=== PATIENT | female | born 1990 | race Caucasian/White ===

== ENCOUNTER 2016-02-27 21:35 | Emergency (ER) | payer OTHER ==
[~2016-02-27] VITALS: Ht 170.1 cm; Wt 53.1 kg
[~2016-02-27 21:35] MED LIST: AMOXICILLIN500 MG PO; AUGMENTIN 875 M1 TA1 PO; BACTRIM DS 8001 TA1 PO; CLARITIN10 MG PO; COLACE100 MG PO; DARVOCET N 1001 TAB PO; HYDROCORTISONE30 G3 PO; IRON325 M1 PO; KEFLEX500 MG PO; METHERGINE0.2 MG PO; MOTRIN800 MG PO; NKHM; PERCOCET 325 MG1 TA6 PO; PRENATAL1 TA1 PO; PRENATAL1 TA7 PO; ROBITUSSIN DM 105 ML PO; ULTRAM50 MG PO; VENTOLIN H0.09 MG/AC INH; ZITHROMAX Z PA250 MG PO
== END 2016-02-27 22:49 | disposition home or self-care (01) ==
LOC: ED 21:35
DX: H00.021 Hordeolum internum right upper eyelid (principal); F17.200 Nicotine dependence, unspecified, uncomplicated

== ENCOUNTER 2016-08-28 14:11 | Emergency (ER) | payer OTHER ==
[~2016-08-28] VITALS: Wt 55.8 kg
[2016-08-28] MEDS ORDERED: BACTRIM DS 8001 TA1 PO (14:31)
[2016-08-28] MEDS ORDERED: CEPHALEXIN500 M1 PO (14:31)
== END 2016-08-28 14:39 | disposition home or self-care (01) ==
LOC: ED 14:11
DX: L02.31 Cutaneous abscess of buttock (principal); F17.200 Nicotine dependence, unspecified, uncomplicated

== ENCOUNTER → 2016-08-30 | Outpatient (CLI) | payer OTHER ==
[~2016-08-30] MED LIST changes: +CEPHALEXIN500 M1 PO
== END | disposition home or self-care (01) ==
LOC: WOUNDCARE 02:20
DX: L02.31 Cutaneous abscess of buttock (principal); B95.62 Methicillin resistant Staphylococcus aureus infection as the cause of diseases classified elsewhere; F12.90 Cannabis use, unspecified, uncomplicated; F17.210 Nicotine dependence, cigarettes, uncomplicated; Z72.89 Other problems related to lifestyle

== ENCOUNTER → 2016-12-05 | Outpatient (CLI) | payer OTHER | END | disposition home or self-care (01) | LOC: US 11-29 14:00 | DX: Z34.81 Encounter for supervision of other normal pregnancy, first trimester (principal) ==

== ENCOUNTER → 2017-01-01 | Outpatient (CLI) | payer OTHER | END | disposition home or self-care (01) | LOC: US 12-24 07:30 | DX: N28.1 Cyst of kidney, acquired (principal) ==

== ENCOUNTER → 2017-02-13 | Outpatient (CLI) | payer OTHER | END | disposition home or self-care (01) | LOC: US 14:00 | DX: Z34.81 Encounter for supervision of other normal pregnancy, first trimester (principal); Z3A.19 19 weeks gestation of pregnancy ==

== ENCOUNTER 2020-01-25 11:47 | Emergency (ER) | payer MEDICAID ==
[~2020-01-25] VITALS: Wt 54.4 kg
[~2020-01-25 11:47] MED LIST changes: +CIPRO500 MG PO; +VIBRAMYCIN100 MG PO
[2020-01-25 13:07] LABS: BILIRUBIN Negative (Negative); BLOOD Negative (Negative); CLARITY Clear (Clear); COLOR Yellow (Yellow); GLUCOSE Negative (Negative); KETONE Negative (Negative); LEUKO ESTERASE 1+ (Negative); NITRITE Negative (Negative); PH 5.5 (4.5-8.0); SPECIFIC GRAVITY 1.015 (1.001-1.030); UROBILINOGEN 0.2 E.U./dl (0.0-1.0)
[2020-01-25 13:14] LABS: BACTERIA 1+
[2020-01-25] MEDS ORDERED: CEFUROXIME AXE500 MG PO (13:17)
== END 2020-01-25 13:16 | disposition home or self-care (01) ==
LOC: ED 11:47
PROVIDERS: Physician Assistant
DX: O23.41 Unspecified infection of urinary tract in pregnancy, first trimester (principal); Z3A.01 Less than 8 weeks gestation of pregnancy

== ENCOUNTER 2020-04-14 16:36 | Emergency (ER) | payer OTHER ==
[~2020-04-14] VITALS: Ht 170.1 cm; Wt 59.0 kg
[~2020-04-14 16:36] MED LIST changes: +CEFUROXIME AXE500 MG PO
[2020-04-14 17:39] LABS: BASO % 0.4 % (0.0-1.0); EOS # 0.1 10*3/uL (0.0-0.4); EOS % 1.3 % (1.0-4.0); LYMPH # 2.2 10*3/uL (1.3-4.4); LYMPH % 19.6 % (27.0-41.0); MEAN CORPUSCULAR HGB 28.7 pg (27.0-31.0); MEAN CORPUSCULAR HGB CONC 31.9 g/dl (33.0-37.0); MEAN PLATELET VOLUME 9.5 fl (9.6-12.3); MONO # 0.7 10*3/uL (0.1-1.0); MONO % 6.1 % (3.0-9.0); NEUT % 72.2 % (47.0-73.0); PLATELET COUNT AUTOMATED 232 10*3/uL (130-400); RED BLOOD COUNT 4.11 10*6/uL (4.10-5.10); RED CELL DISTRI WIDTH 14.6 % (0-14.5)
[2020-04-14 17:48] LABS: BILIRUBIN Negative (Negative); BLOOD Negative (Negative); CLARITY Clear (Clear); COLOR Yellow (Yellow); GLUCOSE Negative (Negative); KETONE Negative (Negative); LEUKO ESTERASE Negative (Negative); NITRITE Negative (Negative); SPECIFIC GRAVITY 1.015 (1.001-1.030); UROBILINOGEN 0.2 E.U./dl (0.0-1.0)
[2020-04-14 17:56] LABS: BACTERIA TRACE; RBC 0-2 rbc/hpf (0-2); WBC 0-2 wbc/hpf (0-5)
[2020-04-14 18:02] LABS: ALBUMIN 3.3 gm/dl (3.1-4.5); BUN 11 mg/dl (7-24); CHLORIDE 107 mmol/L (98-107); CREATININE 0.62 mg/dL (0.55-1.02); POTASSIUM 3.5 mmol/L (3.5-5.1); SGOT/AST 6 IU/L (3-35); SGPT/ALT 12 U/L (12-78); SODIUM 140 mmol/L (136-145)
[2020-04-14 18:03] LABS: ALKALINE PHOSPHATASE 53 U/L (45-117); TOTAL PROTEIN 7.2 gm/dL (6.4-8.2)
== END 2020-04-14 18:36 | disposition home or self-care (01) ==
LOC: ED 16:36
PROVIDERS: Physician Assistant
DX: O99.810 Abnormal glucose complicating pregnancy (principal); O99.332 Smoking (tobacco) complicating pregnancy, second trimester; E16.2 Hypoglycemia, unspecified; Z79.899 Other long term (current) drug therapy; Z3A.17 17 weeks gestation of pregnancy

== ENCOUNTER 2020-10-11 16:54 | Emergency (ER) | payer OTHER ==
[~2020-10-11] VITALS: Ht 170.1 cm; Wt 61.2 kg
[2020-10-11] MEDS ORDERED: AMOXICILLIN500 M3 PO (17:50)
== END 2020-10-11 17:54 | disposition home or self-care (01) ==
LOC: ED 16:54
DX: J02.0 Streptococcal pharyngitis (principal); K02.9 Dental caries, unspecified; Z91.040 Latex allergy status

== ENCOUNTER 2021-05-30 16:54 | Inpatient (IN) | payer OTHER ==
[~2021-05-30] VITALS: Ht 170.1 cm; Wt 50.5 kg
[~2021-05-30 16:54] MED LIST changes: +AMOXICILLIN500 M3 PO
[2021-05-30 17:03] VITALS: BP 135/80
[2021-05-30 17:21] LABS: HEMATOCRIT 37.8 % (37.0-47.0); MEAN CORPUSCULAR HGB 26.7 pg (27.0-31.0); MEAN CORPUSCULAR HGB CONC 32.5 g/dl (33.0-37.0); MEAN PLATELET VOLUME 10.1 fl (9.6-12.3); PLATELET COUNT AUTOMATED 275 10*3/uL (130-400); RED BLOOD COUNT 4.61 10*6/uL (4.10-5.10); RED CELL DISTRI WIDTH 15.9 % (0-14.5); WHITE BLOOD COUNT 27.7 10*3/uL (4.8-10.8)
[2021-05-30 17:25] LABS: MANUAL DIFF REFLEX YES
[2021-05-30 17:39] LABS: ALKALINE PHOSPHATASE 65 U/L (45-117); BUN 13 mg/dl (7-24); CHLORIDE 101 mmol/L (98-107); CREATININE 0.88 mg/dL (0.55-1.02); LIPASE 65 U/L (73-393); POTASSIUM 3.2 mmol/L (3.5-5.1); SGOT/AST 8 IU/L (3-35); SGPT/ALT 14 U/L (12-78); SODIUM 135 mmol/L (136-145); TOTAL PROTEIN 7.5 gm/dL (6.4-8.2)
[2021-05-30 17:45] LABS: TOTAL CELLS COUNTED 100 #CELLS
[2021-05-30 17:46] LABS: OVALOCYTES FEW; PLATELET SUFFICIENCY NORMAL (NORMAL)
[2021-05-30 17:47] LABS: MICROCYTOSIS SLIGHT
[2021-05-30 18:26] LABS: BILIRUBIN Negative (Negative); BLOOD 2+ (Negative); CLARITY Clear (Clear); COLOR Yellow (Yellow); GLUCOSE Negative (Negative); KETONE Trace (Negative); LEUKO ESTERASE 1+ (Negative); NITRITE Negative (Negative)
[2021-05-30 18:39] LABS: BACTERIA 1+; MUCOUS 1+; RBC 21-30 rbc/hpf (0-2); WBC 31-40 wbc/hpf (0-5)
[2021-05-30 19:00] VITALS: BP 140/78
[2021-05-30 22:02] VITALS: BP 117/73
[2021-05-30 22:15] VITALS: BP 127/79
[2021-05-31] VITALS: BP 138/83
[2021-05-31 06:13] LABS: HEMATOCRIT 35.5 % (37.0-47.0); MEAN CELL VOLUME 82.8 fl (81.0-99.0); MEAN CORPUSCULAR HGB 26.1 pg (27.0-31.0); MEAN CORPUSCULAR HGB CONC 31.5 g/dl (33.0-37.0); MEAN PLATELET VOLUME 10.5 fl (9.6-12.3); PLATELET COUNT AUTOMATED 239 10*3/uL (130-400); RED BLOOD COUNT 4.29 10*6/uL (4.10-5.10); RED CELL DISTRI WIDTH 16.1 % (0-14.5); WHITE BLOOD COUNT 26.7 10*3/uL (4.8-10.8)
[2021-05-31 06:21] LABS: ACT PARTIAL THROMBO TIME 34.8 SECONDS (20.0-32.1); INTERNATIONAL NORM RATIO 1.1 (2.0-3.5)
[2021-05-31 06:29] LABS: ALKALINE PHOSPHATASE 73 U/L (45-117); BUN 11 mg/dl (7-24); CHLORIDE 104 mmol/L (98-107); CHOLESTEROL 141 mg/dL (<200); CREATININE 0.93 mg/dL (0.55-1.02); LDL CHOLESTEROL 67 mg/dL (9-159); POTASSIUM 3.6 mmol/L (3.5-5.1); SGOT/AST 16 IU/L (3-35); SGPT/ALT 19 U/L (12-78); SODIUM 136 mmol/L (136-145); TOTAL PROTEIN 6.7 gm/dL (6.4-8.2); TRIGLYCERIDES 132 mg/dl (<150)
[2021-05-31 06:34] LABS: FREE T4 1.08 ng/dl (0.76-1.46)
[2021-05-31 06:36] LABS: MANUAL DIFF REFLEX YES
[2021-05-31 07:36] LABS: PLATELET SUFFICIENCY NORMAL (NORMAL); TOTAL CELLS COUNTED 100 #CELLS
[2021-05-31 07:37] LABS: BURR CELLS FEW; OVALOCYTES FEW
[2021-05-31 08:00] VITALS: BP 124/66
[2021-05-31 12:00] VITALS: BP 105/57; BP 146/56
[2021-05-31 16:00] VITALS: BP 114/66
[2021-05-31 20:00] VITALS: BP 113/60
[2021-06-01] VITALS: BP 111/62
[2021-06-01 06:33] LABS: BASO % 0.2 % (0.0-1.0); EOS % 0.2 % (1.0-4.0); HEMATOCRIT 29.3 % (37.0-47.0); LYMPH % 5.2 % (27.0-41.0); MEAN CELL VOLUME 83.2 fl (81.0-99.0); MEAN CORPUSCULAR HGB 27.3 pg (27.0-31.0); MEAN CORPUSCULAR HGB CONC 32.8 g/dl (33.0-37.0); MEAN PLATELET VOLUME 11.1 fl (9.6-12.3); MONO # 1.1 10*3/uL (0.1-1.0); MONO % 5.4 % (3.0-9.0); NEUT # 17.4 10*3/uL (2.3-7.9); NEUT % 88.2 % (47.0-73.0); PLATELET COUNT AUTOMATED 193 10*3/uL (130-400); RED BLOOD COUNT 3.52 10*6/uL (4.10-5.10); RED CELL DISTRI WIDTH 16.2 % (0-14.5); WHITE BLOOD COUNT 19.7 10*3/uL (4.8-10.8)
[2021-06-01 06:37] LABS: BUN 9 mg/dl (7-24); CHLORIDE 104 mmol/L (98-107); CREATININE 0.74 mg/dL (0.55-1.02); POTASSIUM 3.3 mmol/L (3.5-5.1); SODIUM 137 mmol/L (136-145)
[2021-06-01 08:00] VITALS: BP 118/64
[2021-06-01 12:00] VITALS: BP 114/63
[2021-06-01 16:00] VITALS: BP 119/71
[2021-06-01 20:00] VITALS: BP 125/71
[2021-06-02] VITALS: BP 106/84
[2021-06-02 06:02] LABS: BASO % 0.2 % (0.0-1.0); EOS # 0.1 10*3/uL (0.0-0.4); EOS % 0.5 % (1.0-4.0); LYMPH # 1.6 10*3/uL (1.3-4.4); LYMPH % 10.9 % (27.0-41.0); MEAN CELL VOLUME 82.4 fl (81.0-99.0); MEAN CORPUSCULAR HGB 25.9 pg (27.0-31.0); MEAN CORPUSCULAR HGB CONC 31.4 g/dl (33.0-37.0); MEAN PLATELET VOLUME 10.9 fl (9.6-12.3); MONO # 0.9 10*3/uL (0.1-1.0); MONO % 5.9 % (3.0-9.0); NEUT # 12.1 10*3/uL (2.3-7.9); NEUT % 82.1 % (47.0-73.0); PLATELET COUNT AUTOMATED 242 10*3/uL (130-400); RED BLOOD COUNT 4.25 10*6/uL (4.10-5.10); WHITE BLOOD COUNT 14.7 10*3/uL (4.8-10.8)
[2021-06-02 06:18] LABS: BUN 7 mg/dl (7-24); CHLORIDE 106 mmol/L (98-107); CREATININE 0.79 mg/dL (0.55-1.02); POTASSIUM 3.7 mmol/L (3.5-5.1); SODIUM 139 mmol/L (136-145)
[2021-06-02 08:00] VITALS: BP 122/70
[2021-06-02] MEDS ORDERED: CIPRO500 MG PO (11:15)
== END 2021-06-02 11:40 | disposition home or self-care (01) | DRG 720 ==
LOC: ED 16:54 → EDHOLD 21:01 → 4E 21:01
PROVIDERS: Hospitalist; Internal Medicine; Nurse Practitioner Family; ADMIT Student in an Organized Health Care Education/Training Program; ATTEND Student in an Organized Health Care Education/Training Program
DX: A41.9 Sepsis, unspecified organism (principal); N12 Tubulo-interstitial nephritis, not specified as acute or chronic; Q61.3 Polycystic kidney, unspecified; R31.9 Hematuria, unspecified; E87.6 Hypokalemia; R73.9 Hyperglycemia, unspecified; F12.10 Cannabis abuse, uncomplicated; Z98.891 History of uterine scar from previous surgery; Z91.040 Latex allergy status

== ENCOUNTER 2023-06-19 09:23 | Emergency (ER) | payer OTHER ==
[~2023-06-19] VITALS: Wt 50.3 kg
[2023-06-19 09:40] LABS: BILIRUBIN Negative (Negative); BLOOD 1+ (Negative); CLARITY Clear (Clear); COLOR Yellow (Yellow); GLUCOSE Negative (Negative); KETONE Negative (Negative); LEUKO ESTERASE 1+ (Negative); NITRITE Negative (Negative); PH 6.5 (4.5-8.0); SPECIFIC GRAVITY 1.025 (1.001-1.030); UROBILINOGEN 0.2 E.U./dl (0.0-1.0)
[2023-06-19 09:41] LABS: BASO # 0.1 10*3/uL (0.0-0.1); BASO % 0.8 % (0.0-1.0); EOS # 0.1 10*3/uL (0.0-0.4); EOS % 0.9 % (1.0-4.0); LYMPH % 26.3 % (27.0-41.0); MEAN CELL VOLUME 81.3 fl (81.0-99.0); MEAN CORPUSCULAR HGB 24.8 pg (27.0-31.0); MEAN CORPUSCULAR HGB CONC 30.5 g/dl (33.0-37.0); MEAN PLATELET VOLUME 9.9 fl (9.6-12.3); MONO # 0.5 10*3/uL (0.1-1.0); NEUT # 4.9 10*3/uL (2.3-7.9); NEUT % 64.9 % (47.0-73.0); PLATELET COUNT AUTOMATED 296 10*3/uL (130-400); RED BLOOD COUNT 4.92 10*6/uL (4.10-5.10); RED CELL DISTRI WIDTH 15.9 % (0-14.5); WHITE BLOOD COUNT 7.5 10*3/uL (4.8-10.8)
[2023-06-19 09:49] LABS: BACTERIA 2+; RBC 16-20 rbc/hpf (0-2); WBC 16-20 wbc/hpf (0-5)
[2023-06-19 09:50] LABS: URINE AMPHETAMINES Positive (1000ng/ml); URINE BARBITURATES Negative (200ng/ml); URINE BENZODIAZEPINES Negative (200ng/ml); URINE CANNABINOIDS (THC) Negative (50ng/ml); URINE COCAINE Positive (300ng/ml); URINE METHADONE Negative (300ng/ml); URINE OPIATES Negative (300ng/ml); URINE PHENCYCLIDINE Negative (25ng/ml)
[2023-06-19 10:04] LABS: ALKALINE PHOSPHATASE 59 U/L (46-116); BETA-HCG, QUANT < 3.0 mIU/mL (3-10); BUN 18 mg/dl (9-23); CHLORIDE 106 mmol/L (98-107); ETHYL ALCOHOL < 3.0 mg/dl (<3); LIPASE 41 U/L (12-53); POTASSIUM 3.7 mmol/L (3.4-5.1); SGPT/ALT 10 U/L (5-49); TOTAL PROTEIN 7.2 gm/dL (6.0-8.0)
[2023-06-19] MEDS ORDERED: CIPRO500 MG PO (10:20)
== END 2023-06-19 10:28 ==
LOC: ED 09:23
PROVIDERS: Internal Medicine
DX: O23.41 Unspecified infection of urinary tract in pregnancy, first trimester (principal); N39.0 Urinary tract infection, site not specified; R25.1 Tremor, unspecified; O99.331 Smoking (tobacco) complicating pregnancy, first trimester; F17.200 Nicotine dependence, unspecified, uncomplicated; Z91.040 Latex allergy status; Z79.2 Long term (current) use of antibiotics; Z98.890 Other specified postprocedural states; Z3A.08 8 weeks gestation of pregnancy

== ENCOUNTER 2023-11-19 02:46 | Emergency (ER) | payer OTHER ==
[~2023-11-19] VITALS: Ht 170.1 cm; Wt 59.9 kg
== END 2023-11-19 03:35 | disposition left against medical advice (07) ==
LOC: ED 02:46
DX: O26.853 Spotting complicating pregnancy, third trimester (principal); F41.9 Anxiety disorder, unspecified; E87.6 Hypokalemia; F12.10 Cannabis abuse, uncomplicated; F17.210 Nicotine dependence, cigarettes, uncomplicated; Z53.29 Procedure and treatment not carried out because of patient's decision for other reasons; Z91.040 Latex allergy status; Z98.890 Other specified postprocedural states; Z3A.30 30 weeks gestation of pregnancy

== ENCOUNTER 2024-02-13 20:37 | Emergency (ER) | payer OTHER ==
[~2024-02-13] VITALS: Wt 64.4 kg
[2024-02-13] MEDS ORDERED: SODIUM CHLORIDE 0.9% 1,000 ML IV ONE (20:56)
== END 2024-02-13 21:40 | disposition short-term general hospital (02) ==
LOC: ED 20:37
DX: O42.92 Full-term premature rupture of membranes, unspecified as to length of time between rupture and onset of labor (principal); O46.93 Antepartum hemorrhage, unspecified, third trimester; O99.333 Smoking (tobacco) complicating pregnancy, third trimester; Z3A.40 40 weeks gestation of pregnancy; F15.10 Other stimulant abuse, uncomplicated; F12.10 Cannabis abuse, uncomplicated; Z91.040 Latex allergy status; Z98.890 Other specified postprocedural states

== ENCOUNTER 2024-05-18 10:31 | Inpatient (IN) | payer OTHER ==
[~2024-05-18] VITALS: Ht 170.1 cm; Wt 47.2 kg
[2024-05-18 10:38] VITALS: BP 130/79
[2024-05-18] MEDS ORDERED: IOHEXOL 300 MG/ML 100 ML VIAL IV ONE (11:10)
[2024-05-18] MEDS ORDERED: SODIUM CHLORIDE 0.9% 1,000 ML IV SCH (11:10)
[2024-05-18 11:24] LABS: BASO # 0.1 10*3/uL (0.0-0.1); BASO % 0.4 % (0.0-1.0); EOS # 0.1 10*3/uL (0.0-0.4); EOS % 0.4 % (1.0-4.0); HEMATOCRIT 53.1 % (37.0-47.0); MEAN CELL VOLUME 89.2 fl (81.0-99.0); MEAN CORPUSCULAR HGB 27.7 pg (27.0-31.0); MEAN CORPUSCULAR HGB CONC 31.1 g/dl (33.0-37.0); MEAN PLATELET VOLUME 10.1 fl (9.6-12.3); MONO # 0.8 10*3/uL (0.1-1.0); MONO % 4.5 % (3.0-9.0); NEUT # 15.2 10*3/uL (2.3-7.9); PLATELET COUNT AUTOMATED 305 10*3/uL (130-400); RED BLOOD COUNT 5.95 10*6/uL (4.10-5.10); RED CELL DISTRI WIDTH 14.9 % (0-14.5); WHITE BLOOD COUNT 17.1 10*3/uL (4.8-10.8)
[2024-05-18 11:30] LABS: BILIRUBIN Negative (Negative); BLOOD 2+ (Negative); CLARITY Clear (Clear); COLOR Yellow (Yellow); GLUCOSE Negative (Negative); KETONE Negative (Negative); LEUKO ESTERASE 1+ (Negative); NITRITE Negative (Negative); PH 5.5 (4.5-8.0); UROBILINOGEN 0.2 E.U./dl (0.0-1.0)
[2024-05-18 11:37] LABS: BACTERIA 2+; EPITHELIAL CELLS TNTC; WBC 21-30 wbc/hpf (0-5)
[2024-05-18 11:37] LABS: URINE AMPHETAMINES Negative (1000ng/ml); URINE BARBITURATES Negative (200ng/ml); URINE BENZODIAZEPINES Negative (200ng/ml); URINE CANNABINOIDS (THC) Negative (50ng/ml); URINE COCAINE Positive (300ng/ml); URINE METHADONE Negative (300ng/ml); URINE OPIATES Negative (300ng/ml); URINE PHENCYCLIDINE Negative (25ng/ml)
[2024-05-18 11:53] LABS: POTASSIUM 3.8 mmol/L (3.4-5.1); TOTAL PROTEIN 7.7 gm/dL (6.0-8.0)
[2024-05-18] MEDS ORDERED: cefTRIAXone Sodium 1 GM/10 ML SYR IV ONE (12:10)
[2024-05-18 13:45] VITALS: BP 141/84
[2024-05-18] MEDS ORDERED: ACETAMINOPHEN 325 MG TAB PO ONE (13:45)
[2024-05-18] MEDS ORDERED: Ondansetron Hydrochloride 4 MG/2 ML VIAL IV PRN (16:20)
[2024-05-18] MEDS ORDERED: Acetaminophen/Hydrocodone 5 MG/325 MG TABLET PO PRN (16:20)
[2024-05-18] MEDS ORDERED: SODIUM CHLORIDE 0.9% 1,000 ML IV ONE (16:35)
[2024-05-18] MEDS ORDERED: SODIUM CHLORIDE 0.9% 500 ML IV ONE (16:35)
[2024-05-18] MEDS ORDERED: IBUPROFEN600 MG PO (17:01)
[2024-05-18 17:42] VITALS: BP 149/91
[2024-05-18 20:00] VITALS: BP 104/46
[2024-05-18] MEDS ORDERED: HEPARIN SODIUM 5,000 UNIT/ML VIAL SC SCH (22:00)
[2024-05-19 00:08] VITALS: BP 152/91
[2024-05-19] MEDS ORDERED: ACETAMINOPHEN 325 MG TAB PO PRN (03:25)
[2024-05-19 06:57] LABS: HEMATOCRIT 48.8 % (37.0-47.0); MEAN CELL VOLUME 88.1 fl (81.0-99.0); MEAN CORPUSCULAR HGB 27.8 pg (27.0-31.0); MEAN CORPUSCULAR HGB CONC 31.6 g/dl (33.0-37.0); MEAN PLATELET VOLUME 10.3 fl (9.6-12.3); RED BLOOD COUNT 5.54 10*6/uL (4.10-5.10); RED CELL DISTRI WIDTH 15.3 % (0-14.5); WHITE BLOOD COUNT 13.5 10*3/uL (4.8-10.8)
[2024-05-19 06:58] LABS: MANUAL DIFF REFLEX YES; PLATELET COUNT AUTOMATED 209 10*3/uL (130-400)
[2024-05-19 07:20] LABS: BUN 12 mg/dl (9-23); CHLORIDE 104 mmol/L (98-107); CHOLESTEROL 162 mg/dL (<200); FREE T4 1.11 ng/dl (0.89-1.76); LDL CHOLESTEROL 97 mg/dL (9-159); TRIGLYCERIDES 76 mg/dl (<150)
[2024-05-19 07:25] LABS: TOTAL CELLS COUNTED 100 #CELLS
[2024-05-19 07:26] LABS: PLATELET SUFFICIENCY NORMAL (NORMAL); POTASSIUM 2.4 mmol/L (3.4-5.1)
[2024-05-19] MEDS ORDERED: POTASSIUM CHLORIDE 20 MEQ TAB PO ONE (07:35)
[2024-05-19 08:00] VITALS: BP 110/58
[2024-05-19] MEDS ORDERED: MAGNESIUM SULFATE 50 ML IV ONE (08:00)
[2024-05-19 12:00] VITALS: BP 99/53
[2024-05-19] MEDS ORDERED: POTASSIUM CHLORIDE 20 MEQ TAB PO SCH ×2 (12:00→18:00)
[2024-05-19] MEDS ORDERED: cefTRIAXone Sodium 1 GM in SYRINGE INFUSION 10 ML IV SCH (13:00)
[2024-05-19] MEDS ORDERED: SODIUM CHLORIDE 0.9% 1,000 ML IV ONE (13:05)
[2024-05-19 13:18] VITALS: BP 102/50
[2024-05-19] MEDS ORDERED: ERGOCALCIFEROL 50,000 IU CAP (1.25 MG) PO ONE (13:30)
[2024-05-19 16:00] VITALS: BP 101/53
[2024-05-19 20:00] VITALS: BP 111/49
[2024-05-20] VITALS: BP 110/60
[2024-05-20 06:37] LABS: HEMATOCRIT 46.8 % (37.0-47.0); MEAN CELL VOLUME 90.9 fl (81.0-99.0); MEAN CORPUSCULAR HGB 28.2 pg (27.0-31.0); MEAN PLATELET VOLUME 10.9 fl (9.6-12.3); PLATELET COUNT AUTOMATED 212 10*3/uL (130-400); RED BLOOD COUNT 5.15 10*6/uL (4.10-5.10); RED CELL DISTRI WIDTH 15.2 % (0-14.5); WHITE BLOOD COUNT 15.8 10*3/uL (4.8-10.8)
[2024-05-20 06:39] LABS: MANUAL DIFF REFLEX YES
[2024-05-20 07:00] LABS: ALKALINE PHOSPHATASE 77 U/L (46-116); BUN 12 mg/dl (9-23); CHLORIDE 106 mmol/L (98-107); SGPT/ALT 22 U/L (5-49); TOTAL PROTEIN 6.6 gm/dL (6.0-8.0)
[2024-05-20 07:11] LABS: POTASSIUM 4.7 mmol/L (3.4-5.1)
[2024-05-20 07:13] LABS: TOTAL CELLS COUNTED 100 #CELLS
[2024-05-20 07:14] LABS: BURR CELLS FEW; PLATELET SUFFICIENCY NORMAL (NORMAL); VACUOLATION OF NEUTROPHILS SLIGHT
[2024-05-20 08:00] VITALS: BP 121/75
[2024-05-20] MEDS ORDERED: BARIUM SULFATE 2% 450 ML BOT PO SCH (09:00)
[2024-05-20] MEDS ORDERED: IOHEXOL 300 MG/ML 100 ML VIAL IV ONE (09:00)
[2024-05-20] MEDS ORDERED: Vancomycin Hydrochloride 500 MG in SODIUM CHLORIDE 0.9% 100 ML IV SCH (10:00)
[2024-05-20] MEDS ORDERED: Cholecalciferol 2,000 UNIT TABLET (50 MCG) PO SCH (10:00)
[2024-05-20 12:00] VITALS: BP 114/65
[2024-05-20] MEDS ORDERED: IOHEXOL 300 MG/ML 100 ML VIAL ONE (13:12)
[2024-05-20 16:00] VITALS: BP 120/63
[2024-05-20 20:00] VITALS: BP 116/61
[2024-05-20] MEDS ORDERED: diphenhydrAMINE hydrochloride 25 MG CAP PO ONE (21:30)
[2024-05-21] VITALS: BP 145/86
[2024-05-21 05:06] LABS: HBsAG SCREEN Negative (Negative); HCV Ab Non Reactive (Non Reactive); HEP B CORE Ab, IgM Negative (Negative)
[2024-05-21 08:00] VITALS: BP 137/74
[2024-05-21 10:59] LABS: BASO % 0.4 % (0.0-1.0); EOS # 0.2 10*3/uL (0.0-0.4); EOS % 2.4 % (1.0-4.0); HEMATOCRIT 42.1 % (37.0-47.0); MEAN CORPUSCULAR HGB 27.9 pg (27.0-31.0); MEAN CORPUSCULAR HGB CONC 31.4 g/dl (33.0-37.0); MEAN PLATELET VOLUME 10.6 fl (9.6-12.3); MONO # 0.7 10*3/uL (0.1-1.0); MONO % 6.8 % (3.0-9.0); NEUT # 8.1 10*3/uL (2.3-7.9); NEUT % 79.7 % (47.0-73.0); PLATELET COUNT AUTOMATED 197 10*3/uL (130-400); RED BLOOD COUNT 4.73 10*6/uL (4.10-5.10); RED CELL DISTRI WIDTH 15.1 % (0-14.5); WHITE BLOOD COUNT 10.2 10*3/uL (4.8-10.8)
[2024-05-21] MEDS ORDERED: SPIRONOLACTONE 25 MG TAB PO SCH (11:10)
[2024-05-21] MEDS ORDERED: EMPAGLIFLOZIN 10 MG TABLET PO SCH (11:10)
[2024-05-21 11:25] LABS: BUN 13 mg/dl (9-23); CHLORIDE 102 mmol/L (98-107); POTASSIUM 4.4 mmol/L (3.4-5.1)
[2024-05-21 12:00] VITALS: BP 128/77
[2024-05-21 16:00] VITALS: BP 135/77
[2024-05-21] MEDS ORDERED: DOCUSATE SODIUM 100 MG CAP PO SCH (18:00)
[2024-05-21 20:00] VITALS: BP 135/77
[2024-05-21] MEDS ORDERED: Metoprolol Tartrate 25 MG TAB PO SCH (22:00)
[2024-05-21] MEDS ORDERED: SACUBITRIL/VALSARTAN 24 MG-26 MG TABLET PO SCH (22:00)
[2024-05-21] MEDS ORDERED: diphenhydrAMINE hydrochloride 25 MG CAP PO ONE (22:10)
[2024-05-22] VITALS: BP 132/74
[2024-05-22] MEDS ORDERED: CEFDINIR300 MG PO ×2 (00:36→11:41)
[2024-05-22 04:00] VITALS: BP 129/74
[2024-05-22 06:25] LABS: BASO % 0.3 % (0.0-1.0); EOS # 0.1 10*3/uL (0.0-0.4); EOS % 0.7 % (1.0-4.0); HEMATOCRIT 46.4 % (37.0-47.0); MEAN CELL VOLUME 87.2 fl (81.0-99.0); MEAN CORPUSCULAR HGB 27.3 pg (27.0-31.0); MEAN CORPUSCULAR HGB CONC 31.3 g/dl (33.0-37.0); MEAN PLATELET VOLUME 10.5 fl (9.6-12.3); MONO # 0.8 10*3/uL (0.1-1.0); MONO % 6.7 % (3.0-9.0); NEUT # 9.7 10*3/uL (2.3-7.9); NEUT % 81.7 % (47.0-73.0); PLATELET COUNT AUTOMATED 251 10*3/uL (130-400); RED BLOOD COUNT 5.32 10*6/uL (4.10-5.10); WHITE BLOOD COUNT 11.8 10*3/uL (4.8-10.8)
[2024-05-22 06:34] LABS: BUN 12 mg/dl (9-23); CHLORIDE 99 mmol/L (98-107); POTASSIUM 4.1 mmol/L (3.4-5.1)
[2024-05-22 08:00] VITALS: BP 95/60
[2024-05-22] MEDS ORDERED: OMNICEF300 MG PO (11:41)
[2024-05-22] MEDS ORDERED: ENTRESTO 24 MG1 EACH PO (11:46)
[2024-05-22] MEDS ORDERED: VITAMIN D350 MCG PO (11:46)
[2024-05-22] MEDS ORDERED: LOPRESSOR25 MG PO (11:46)
[2024-05-22] MEDS ORDERED: JARDIANCE10 MG PO (11:46)
[2024-05-22] MEDS ORDERED: ALDACTONE25 MG PO (11:46)
== END 2024-05-22 12:54 | disposition home or self-care (01) | DRG 871 ==
LOC: ED 10:31 → 5E 15:50 → EDHOLD 15:50 → 5E 17:01
PROVIDERS: Internal Medicine; Nurse Practitioner Family; Registered Nurse; Student in an Organized Health Care Education/Training Program; ADMIT Internal Medicine; ATTEND Internal Medicine
DX: A41.9 Sepsis, unspecified organism (principal); I50.21 Acute systolic (congestive) heart failure; N17.0 Acute kidney failure with tubular necrosis; R65.21 Severe sepsis with septic shock; N39.0 Urinary tract infection, site not specified; E87.20 Acidosis, unspecified; I42.7 Cardiomyopathy due to drug and external agent; N20.0 Calculus of kidney; F14.10 Cocaine abuse, uncomplicated; R73.9 Hyperglycemia, unspecified; R31.29 Other microscopic hematuria; D75.1 Secondary polycythemia; K76.89 Other specified diseases of liver; E55.9 Vitamin D deficiency, unspecified; F19.10 Other psychoactive substance abuse, uncomplicated; Z91.040 Latex allergy status; Z84.1 Family history of disorders of kidney and ureter; Z82.49 Family history of ischemic heart disease and other diseases of the circulatory system

== ENCOUNTER 2024-07-18 16:21 | Emergency (ER) | payer OTHER ==
[~2024-07-18 16:21] MED LIST changes: +ALDACTONE25 MG PO; +CEFDINIR300 MG PO; +ENTRESTO 24 MG1 EACH PO; +IBUPROFEN600 MG PO; +JARDIANCE10 MG PO; +LOPRESSOR25 MG PO; +OMNICEF300 MG PO; +VITAMIN D350 MCG PO
== END 2024-07-18 18:50 | disposition left against medical advice (07) ==
LOC: ED 16:21
DX: R50.9 Fever, unspecified (principal); R11.10 Vomiting, unspecified; R22.41 Localized swelling, mass and lump, right lower limb; R22.42 Localized swelling, mass and lump, left lower limb; Z53.21 Procedure and treatment not carried out due to patient leaving prior to being seen by health care provider

== ENCOUNTER → 2024-11-10 | Outpatient (CLI) | payer OTHER | END | disposition home or self-care (01) | LOC: RESCLI 02:03 | PROVIDERS: ATTEND Internal Medicine | DX: I42.9 Cardiomyopathy, unspecified (principal); Q61.3 Polycystic kidney, unspecified; I10 Essential (primary) hypertension; E55.9 Vitamin D deficiency, unspecified; Z79.899 Other long term (current) drug therapy ==

== ENCOUNTER → 2024-11-24 | Outpatient (CLI) | payer OTHER | END | disposition home or self-care (01) | LOC: CARD 13:00 | PROVIDERS: ATTEND Student in an Organized Health Care Education/Training Program | DX: I42.9 Cardiomyopathy, unspecified (principal) ==